=== PATIENT | female | born 1975 | race Caucasian/White ===

== ENCOUNTER 2024-12-02 06:23 | Emergency (ER) | payer BC, OTHER ==
[~2024-12-02] VITALS: Ht 154.9 cm; Wt 77.1 kg
[~2024-12-02 06:23] MED LIST: VALTREX500 MG PO
[2024-12-02] MEDS: ONDANSETRON HCL INJ 2MG/ML 2ML 2 MG/ML VIAL IV STA (06:52)
[2024-12-02 06:58] LABS: RED CELL DISTRIBUTION WIDTH 13.2 % (11.7-14.4)
[2024-12-02 07:00] VITALS: TEMP 98
[2024-12-02] MEDS: DICYCLOMINE HCL 20 MG/2 ML VIAL IM ONE (07:12)
[2024-12-02] MEDS: SODIUM CHLORIDE 0.9% 1000ML 1,000 ML IV SCH (07:12)
[2024-12-02 07:15] LABS: LEUKOCYTE ESTERASE ,URINE NEGATIVE (NEGATIVE); PROTEIN,URINE DIPSTICK 1+ (NEGATIVE); URINE UROBILINOGEN 0.2 mg/dL (0.2 - 1)
[2024-12-02 07:23] LABS: EST GLOMERULAR FILTRATION RATE 109.0 ML/MIN (>=60)
[2024-12-02] MEDS ORDERED: IOPAMIDOL 370 MG/ML 100 ML INFUS..BTL INJ ONE (07:32)
[2024-12-02 07:34] LABS: CALCIUM OXALATE CRYSTALS,UR FEW (FEW); EPITHELIAL CELLS,URINE MODERATE /LPF
[2024-12-02] MEDS: KETOROLAC TROMETHAMINE 30 MG/ML VIAL IV STA (08:32)
[2024-12-02 08:34] VITALS: PULSE 68; RESP 16
[2024-12-02] MEDS ORDERED: CIPRO500 MG PO (09:15)
[2024-12-02] MEDS ORDERED: REGLAN10 MG PO (09:18)
[2024-12-02 09:33] VITALS: BP 126/93; PULSE 84; RESP 17; TEMP 98; O2SAT 97
[2024-12-02 09:50] LABS: EOSINOPHILS % (MANUAL) 1 % (0-7); LYMPHOCYTES % (MANUAL) 13 % (19-48); MONOCYTES % (MANUAL) 5 % (3.4-9.0); NEUTROPHILS % (MANUAL) 76 % (40-74); PLATELET ESTIMATE ADEQUATE; PLATELET MORPHOLOGY COMMENT NORMAL; RBC MORPHOLOGY COMMENT NORMAL; REACTIVE LYMPHOCYTES 5
== END 2024-12-02 09:25 | disposition home or self-care (01) ==
LOC: ER 06:27
DX: R11.2 Nausea with vomiting, unspecified (principal); K52.9 Noninfective gastroenteritis and colitis, unspecified; K92.1 Melena; R10.30 Lower abdominal pain, unspecified; I10 Essential (primary) hypertension
CPT/HCPCS: 36415; 74177; 80053; 81001; 83690; 85007; 85027; 99284; J0500; J1885; J2405; J2470; J7030; Q9967